=== PATIENT | male | born 1990 | race Caucasian/White ===

== ENCOUNTER 2016-05-11 13:42 | Emergency (ER) | payer OTHER ==
[~2016-05-11] VITALS: Ht 193 cm; Wt 99.6 kg
[2016-05-11 16:10] VITALS: BP 120/73
[2016-05-13 13:56] LABS: CHLAMYDIA TRACHOMATIS NEGATIVE; NEISSERIA GONORRHOEAE NEGATIVE
== END 2016-05-11 16:10 | disposition home or self-care (01) ==
LOC: EME 13:42
PROVIDERS: Nurse Practitioner Family
DX: Z20.2 Contact with and (suspected) exposure to infections with a predominantly sexual mode of transmission (principal)
CPT/HCPCS: 87491; 87591; 99281; 99284